=== PATIENT | female | born 1930 | race Caucasian/White ===

== ENCOUNTER 2019-02-08 12:33 | Emergency (ER) | payer MEDICARE ==
[2019-02-08] MEDS ORDERED: Bacitracin 1 PK ONE (13:23)
--- NOTE | 2019-02-08 13:23 | CT ---
CT Brain WO Con History: Fall. Closed head injury Comparison: CT 2005 Findings: Two-view dilatation of the ventricular system. No acute hemorrhage or infarct. Ventricular system dilatation is slightly increased. No evidence of periventricular transudation of fluid. Right anterior middle cranial fossa calcification is similar to reflect a calcified meningioma. Impression: 1. Slight interval increase in ventricular dilatation since 2012. Exam 2. Right forehead soft tissue contusion. Underlying calvarium is intact.
== END 2019-02-08 13:50 | disposition home or self-care (01) ==
LOC: NAV ERS 12:33
DX: S01.21XA Laceration without foreign body of nose, initial encounter (principal); S00.511A Abrasion of lip, initial encounter; S00.81XA Abrasion of other part of head, initial encounter; S80.211A Abrasion, right knee, initial encounter; F03.90 Unspecified dementia, unspecified severity, without behavioral disturbance, psychotic disturbance, mood disturbance, and anxiety; F32.9 Major depressive disorder, single episode, unspecified; Z87.891 Personal history of nicotine dependence; Z79.899 Other long term (current) drug therapy; I10 Essential (primary) hypertension; W01.10XA Fall on same level from slipping, tripping and stumbling with subsequent striking against unspecified object, initial encounter
CPT/HCPCS: 12011; 70450

== ENCOUNTER 2019-05-14 16:49 | Emergency (ER) | payer MEDICARE ==
[2019-05-14] MEDS ORDERED: Morphine 4 MG/ML VIAL ONE (17:17)
[2019-05-14] MEDS ORDERED: Ondansetron PF 4 MG/2 ML Vial ONE (17:17)
[2019-05-14 17:27] LABS: PTT 31.7 SEC (22.9-36.1); Prothrombin Time 13.1 SEC (12.0-14.7)
[2019-05-14 17:35] LABS: Anion Gap 19 mmol/L (10-20); BUN (Urea Nitrogen) 24 mg/dL (9.8-20.1); CK (CPK) 50 U/L (29-168); Calc. Creatinine Clearance 0 mL/min (70-130); Calcium 9.6 mg/dL (7.8-10.44); Carbon Dioxide 23 mmol/L (23-31); Chloride 101 mmol/L (98-107); Estimated GFR-MDRD 39; Glucose 109 mg/dL (83-110); Potassium 4.2 mmol/L (3.5-5.1); Sodium 139 mmol/L (136-145)
--- NOTE | 2019-05-14 17:40 | RAD ---
XR Hip Rt 2-3 View History: Fall Comparison: None. Findings: Right mid cervical femoral neck fracture and an oblique orientation extending into the inte rtrochanteric region. The right obturator ring is intact. Impression: Combination right femoral neck and intertrochanteric fracture with mild varus angulation and impaction.
[2019-05-14 17:44] LABS: #Basophils 0.1 thou/uL (0.0-0.2); #Eosinphils 0.2 thou/uL (0.0-0.7); #Lymphocytes 4.8 thou/uL (1.20-3.40); #Monocytes 0.8 thou/uL (0.11-0.59); #Neutrophils 12.5 thou/uL (1.40-6.50); %Basophils 0.7 % (0.0-1.0); %Eosinophils 1.1 % (0.0-10.0); %Monocytes 4.2 % (0.0-10.0); %Neutrophils 67.9 % (42.0-75.0); Hemoglobin 10.9 g/dL (12.0-16.0); Mean Corpuscular HGB CONC 30.4 g/dL (32.0-36.0); Mean Corpuscular Hemoglobin 19.4 pg (27.0-31.0); Mean Platelet Volume 7.8 fL (7.4-10.4); Platelet Count 408 thou/uL (130-400); RBC Distribution Width 13.5 % (11.5-14.5); Red Blood Cell (RBC) Count 5.63 mill/uL (4.20-5.40); White Blood Cell (WBC) Count 18.5 thou/uL (4.8-10.8)
[2019-05-14 18:03] LABS: Helmet Cells SLIGHT = 2-5 cells (100X) (0-1/hpf); Microcytosis MODERATE=15-30 cells (100X) (0-5/hpf); Ovalocytes SLIGHT = 2-5 cells (100X) (0-1/hpf); Platelet Morphology Comment Appears Increased
== END 2019-05-14 18:13 | disposition short-term general hospital (02) ==
LOC: NAV ERS 16:49
DX: S72.141A Displaced intertrochanteric fracture of right femur, initial encounter for closed fracture (principal); I10 Essential (primary) hypertension; G30.9 Alzheimer's disease, unspecified; F02.80 Dementia in other diseases classified elsewhere, unspecified severity, without behavioral disturbance, psychotic disturbance, mood disturbance, and anxiety; F32.9 Major depressive disorder, single episode, unspecified; Z87.891 Personal history of nicotine dependence; Z79.899 Other long term (current) drug therapy; V48.4XXA Person boarding or alighting a car injured in noncollision transport accident, initial encounter
CPT/HCPCS: 80048; 82550; 85025; 85610; 85730; 96374; 96375; J2270; J2405